=== PATIENT | female | born 2000 | race African-American/Black ===

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

== ENCOUNTER 2022-02-08 00:01 | Emergency (ER) | payer OTHER ==
[2022-02-08 00:44] LABS: Bacteria/HPF None Seen HPF (None Seen); Bilirubin Negative (Negative); Blood, Urine Negative (Negative); Clarity Clear (Clear); Glucose, Urine (Dipstick) 50 mg/dL (Negative); Ketone, Urine Negative (Negative); Leukocyte 75 Leu/uL (Negative); Nitrite Negative (Negative); Protein, Urine (Dipstick) 30 mg/dL (Neg-Trace); Specific Gravity, Urine 1.032 (1.002-1.036); Urobilinogen Normal mg/dL (Less than 2); pH, Urine 7.5 (5.0-9.0)
[2022-02-08 00:47] LABS: RBC/HPF 0-3 HPF (0-3); Squamous Epithelial 0-3 HPF (0-3); WBC/HPF 0-3 HPF (0-3)
[2022-02-08 10:40] LABS: Chlamydia by PCR Not Detected (NotDetected); GC by PCR Not Detected (NotDetected)
== END 2022-02-08 03:26 | disposition home or self-care (01) ==
LOC: ERS 00:01
DX: O99.891 Other specified diseases and conditions complicating pregnancy (principal); N89.8 Other specified noninflammatory disorders of vagina; Z3A.20 20 weeks gestation of pregnancy
CPT/HCPCS: 81003; 81015; 87086; 87480; 87491; 87510; 87591; 87660; 99284

== ENCOUNTER 2022-05-05 20:45 | Emergency (ER) | payer OTHER | END 2022-05-05 22:00 | disposition home or self-care (01) | LOC: ERS 20:45 | DX: O26.893 Other specified pregnancy related conditions, third trimester (principal); Z3A.34 34 weeks gestation of pregnancy | CPT/HCPCS: 99283 ==

== ENCOUNTER 2022-08-25 13:14 | Emergency (ER) | payer OTHER ==
[2022-08-25] MEDS ORDERED: Lidocaine 1% PF 5 ML VIAL ONE (13:32)
[2022-08-25] MEDS ORDERED: HYDROcodone/Acetaminophen 5/325 mg Tablet ONE (13:59)
== END 2022-08-25 14:11 | disposition home or self-care (01) ==
LOC: ERS 13:14
DX: N76.4 Abscess of vulva (principal)
CPT/HCPCS: 10060; 87070; 87205

== ENCOUNTER 2024-03-07 11:43 | Emergency (ER) | payer OTHER ==
[2024-03-07] MEDS ORDERED: Lidocaine 1% w/Epinephrine 1:100K 20 ML VIAL ONE (13:15)
[2024-03-07] MEDS ORDERED: Sulfameth/Trimethoprim DS 800-160mg TAB ONE (14:19)
== END 2024-03-07 14:36 | disposition home or self-care (01) ==
LOC: ERS 11:43
DX: N76.4 Abscess of vulva (principal)
CPT/HCPCS: 56405